=== PATIENT | female | born 1940 | race Caucasian/White ===

== ENCOUNTER 2021-01-11 11:15 | Emergency (ER) | payer BC, MEDICARE ==
[~2021-01-11] VITALS: Ht 157.5 cm; Wt 59.1 kg
[2021-01-11] MEDS ORDERED: LOSA25TA14 PO (11:57)
[2021-01-11] MEDS ORDERED: SPIR1CAP INH (11:57)
[2021-01-11] MEDS ORDERED: ZITH500T PO (11:57)
[2021-01-11] MEDS ORDERED: ADV250INH INH (11:57)
[2021-01-11] MEDS ORDERED: CART180C3 PO (11:57)
[2021-01-11] MEDS ORDERED: PROAAER10 INH (11:57)
[2021-01-11] MEDS ORDERED: VITA100016 PO (11:57)
--- NOTE | 2021-01-11 13:48 | REP ---
INDICATION: pain. COMPARISON: None. TECHNIQUE: Four views of the right knee are provided. No sunrise view is included. FINDINGS: Four views of the right knee demonstrate diffuse osteoporosis. Vascular calcification is noted. There is mild sclerosis and spur formation at the lateral compartment. No fracture or subluxation is seen. No evidence of joint effusion seen. No opaque foreign body noted. IMPRESSION: Diffuse osteoporosis. Lateral compartment osteoarthritic sclerosis and spurring. No sunrise view included. No fracture seen. <Electronically signed by Gab Mock > 01/11/21 [id number]
[2021-01-11 15:18] VITALS: BP 164/71
--- NOTE | 2021-01-11 15:22 | REP ---
INDICATION: swelling right calf COMPARISON: None. TECHNIQUE: Real time compression and duplex Doppler interrogation of the right lower extremity deep venous system is performed, including the left common femoral vein.Compression of the right peroneal and posterior tibial veins is performed. FINDINGS: The right common femoral, superficial femoral and popliteal veins are fully compressible with transducer pressure and demonstrate normal spontaneous and phasic flow, without evidence of deep venous thrombosis.The left common femoral vein demonstrates no thrombus.The visualized right peroneal and posterior tibial veins demonstrate no thrombus. IMPRESSION: No evidence of deep venous thrombosis of the right lower extremity femoral popliteal venous system.The visualized right peroneal and posterior tibial veins demonstrate no thrombus. <Electronically signed by Vinod Strange > 01/11/21 [id number]
== END 2021-01-11 15:58 | disposition home or self-care (01) ==
LOC: M ED 11:15
DX: M25.561 Pain in right knee (principal); R22.41 Localized swelling, mass and lump, right lower limb; I10 Essential (primary) hypertension; E78.5 Hyperlipidemia, unspecified; J44.9 Chronic obstructive pulmonary disease, unspecified; Z79.899 Other long term (current) drug therapy